=== PATIENT | female | born 1980 | race Hispanic/Latino ===

== ENCOUNTER 2021-06-26 14:43 | Emergency (ER) | payer OTHER ==
--- NOTE | 2021-06-26 17:54 | RAD REPORT ---
EXAM DESCRIPTION: [facility] Single View06/26/2021 5:11 pm CLINICAL HISTORY: Cough COMPARISON: none FINDINGS: Mild bilateral pulmonary opacities. . The heart is normal size IMPRESSION: Mild bilateral pulmonary opacities may indicate mild pneumonia
--- NOTE | 2021-06-26 18:35 | ER ---
Nurse's Notes [facility] Name: Keyana Christiansen Age: 40 yrs Sex: Female : 1980 Arrival Date: 06/26/2021 Time: 14:46 Bed DIS4 Private MD: Diagnosis: Fever, unspecified;Pneumonia due to SARS-associated coronavirus-Covid 19 Presentation: 06/26 16:09 Chief complaint: Patient states: started feeling achy, has nasal congestion iw and now a cough. Coronavirus screen: Client presents with at least one sign or symptom that may indicate coronavirus-19. Ebola Screen: Patient negative for fever greater than or equal to 101.5 degrees Fahrenheit, and additional compatible Ebola Virus Disease symptoms Patient denies exposure to infectious person. Patient denies travel to an Ebola-affected area in the 21 days before illness onset. No symptoms or risks identified at this time. Initial Sepsis Screen: Does the patient meet any 2 criteria? No. Patient's initial sepsis screen is negative. Does the patient have a suspected source of infection? No. Patient's initial sepsis screen is negative. Risk Assessment: Do you want to hurt yourself or someone else? Patient reports no desire to harm self or others. Onset of symptoms was June 24, 2021. 16:09 Method Of Arrival: Ambulatory iw 16:09 Acuity: ERICK 4 iw Triage Assessment: 19:00 General: Behavior is calm, cooperative. iw 19:30 General: Appears in no apparent distress. 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 - Social history:: Smoking status: Smoking status: Patient denies any tobacco usage or history of. - Family history:: not pertinent. Screenin:35 Abuse screen: Denies threats or abuse. Denies injuries from another. Nutritional iw screening: No deficits noted. Tuberculosis screening: No symptoms or risk factors identified. Fall Risk None identified. Vital Signs: 16:10 BP 166 / 95; Pulse 84; Resp 16; Temp 97.4; Pulse Ox 100% on R/A; iw ED Course: 14:46 Patient arrived in ED. ds1 16:10 Triage completed. iw 17:11 CXR XRAY In Process Unspecified. EDMS 17:33 Tj Jackson MD is Attending Physician. [facility] 17:47 Kailyn Bruce, RN is Primary Nurse. iw 18:10 Arm band placed on. iw 18:33 Chago Maldonado MD is Referral Physician. narciso 19:35 No provider procedures requiring assistance completed. Patient did not have IV access iw during this emergency room visit. Administered Medications: 19:20 Drug: Motrin (ibuprofen) 600 mg Route: PO; iw 19:30 Follow up: Response: No adverse reaction iw 19:22 Drug: Pepcid (famotidine) 40 mg Route: PO; iw 19:30 Follow up: Response: No adverse reaction iw 19:35 Drug: Rocephin (cefTRIAXone) 1 grams Route: IM; Site: left ventrogluteal; iw 19:40 Follow up: Response: No adverse reaction iw 19:35 Drug: Zithromax (azithromycin) 500 mg Route: PO; iw 19:40 Follow up: Response: No adverse reaction iw 19:35 Not Given (Patient Refused): Albuterol HFA Inhaler 4 puffs Inhalation once iw 19:36 Drug: Decadron (dexamethasone) 10 mg Route: IM; Site: left ventrogluteal; iw 19:40 Follow up: Response: No adverse reaction iw 19:36 Drug: Aspirin Chewable Tablet 162 mg Route: PO; iw 19:40 Follow up: Response: No adverse reaction iw Outcome: 18:34 Discharge ordered by . narciso 19:36 Patient left the ED. iw Signatures: Dispatcher [employer] EDME Tj Jackson MD MD cha Sanford, Demi ds1 Kailyn Bruce, RN RN iw
--- NOTE | 2021-06-26 18:35 | EDPHYS ---
Physician Documentation [facility] Name: Keyana Christiansen Age: 40 yrs Sex: Female : 1980 Arrival Date: 06/26/2021 Time: 14:46 Bed DIS4 Private MD: ED Physician Tj Jackson HPI: 06/26 18:25 This 40 yrs old Female presents to ER via Ambulatory with complaints of Cough, narciso Body Aches. 18:25 The patient or guardian reports airway noise, cough, that is constant. Onset: The narciso symptoms/episode began/occurred 3 day(s) ago. Severity of symptoms: At their worst the symptoms were mild, moderate, in the emergency department the symptoms are unchanged. Modifying factors: The symptoms are alleviated by nothing, the symptoms are aggravated by nothing. Associated signs and symptoms: Pertinent positives: chest pain, fever, nausea, rhinorrhea, sore throat. The patient has not experienced similar symptoms in the past. 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 - Social history:: Smoking status: Smoking status: Patient denies any tobacco usage or history of. - Family history:: not pertinent. ROS: 18:25 Constitutional: Negative for fever, chills, and weight loss, Eyes: Negative for injury, narciso pain, redness, and discharge, ENT: Negative for injury, pain, and discharge, Neck: Negative for injury, pain, and swelling, Cardiovascular: Negative for chest pain, palpitations, and edema, Abdomen/GI: Negative for abdominal pain, nausea, vomiting, diarrhea, and constipation, Back: Negative for injury and pain, : Negative for injury, bleeding, discharge, and swelling, MS/Extremity: Negative for injury and deformity, Skin: Negative for injury, rash, and discoloration, Neuro: Negative for headache, weakness, numbness, tingling, and seizure, Psych: Negative for depression, anxiety, suicide ideation, homicidal ideation, and hallucinations, Allergy/Immunology: Negative for hives, rash, and allergies, Endocrine: Negative for neck swelling, polydipsia, polyuria, polyphagia, and marked weight changes, Hematologic/Lymphatic: Negative for swollen nodes, abnormal bleeding, and unusual bruising. 18:25 Respiratory: Positive for cough, with no reported sputum, shortness of breath, at rest. Exam: 18:25 Constitutional: This is a well developed, well nourished patient who is awake, alert, narciso and in no acute distress. Head/Face: Normocephalic, atraumatic. Eyes: Pupils equal round and reactive to light, extra-ocular motions intact. Lids and lashes normal. Conjunctiva and sclera are non-icteric and not injected. Cornea within normal limits. Periorbital areas with no swelling, redness, or edema. ENT: Nares patent. No nasal discharge, no septal abnormalities noted. Tympanic membranes are normal and external auditory canals are clear. Oropharynx with no redness, swelling, or masses, exudates, or evidence of obstruction, uvula midline. Mucous membranes moist. Neck: Trachea midline, no thyromegaly or masses palpated, and no cervical lymphadenopathy. Supple, full range of motion without nuchal rigidity, or vertebral point tenderness. No Meningismus. Chest/axilla: Normal chest wall appearance and motion. Nontender with no deformity. No lesions are appreciated. Cardiovascular: Regular rate and rhythm with a normal S1 and S2. No gallops, murmurs, or rubs. Normal PMI, no JVD. No pulse deficits. Abdomen/GI: Soft, non-tender, with normal bowel sounds. No distension or tympany. No guarding or rebound. No evidence of tenderness throughout. Back: No spinal tenderness. No costovertebral tenderness. Full range of motion. Skin: Warm, dry with normal turgor. Normal color with no rashes, no lesions, and no evidence of cellulitis. MS/ Extremity: Pulses equal, no cyanosis. Neurovascular intact. Full, normal range of motion. Neuro: Awake and alert, GCS 15, oriented to person, place, time, and situation. Cranial nerves II-XII grossly intact. Motor strength 5/5 in all extremities. Sensory grossly intact. Cerebellar exam normal. Normal gait. Psych: Awake, alert, with orientation to person, place and time. Behavior, mood, and affect are within normal limits. 18:25 Respiratory: the patient does not display signs of respiratory distress, Respirations: normal, Breath sounds: bronchial sounds, that are mild, are scattered, decreased breath sounds, that are mild, are located in both bases, rhonchi, that are mild, are scattered, stridor, is not appreciated, Respiratory rate: 16 18:29 Musculoskeletal/extremity: Circulation is intact in all extremities. Sensation intact. narciso Compartment Syndrome exam of affected extremity: is normal. Joints: All joints appear normal with full range of motion. Weight bearing: able to fully bear weight, Tendon exam: specific tendon testing normal through active and passive range of motion DVT Exam: No signs of deep vein thrombosis. no pain, no swelling, no tenderness, negative Homans' sign noted on exam, no appreciated bluish discoloration, no erythema, no increased warmth. Vital Signs: 16:10 BP 166 / 95; Pulse 84; Resp 16; Temp 97.4; Pulse Ox 100% on R/A; iw MDM: 17:33 Patient medically screened. narciso 18:30 Differential Diagnosis: Bronchitis Influenza Upper Respiratory Infection Sinusitis narciso Pharyngitis Viral Syndrome Pneumonia. Data reviewed: vital signs, nurses notes, lab test result(s), radiologic studies, plain films. Data interpreted: monitoring engineer: not applicable for this patient encounter. rate is 84 beats/min, rhythm is regular, Pulse oximetry: on room air. Test interpretation: by ED physician or midlevel provider: plain radiologic studies. Counseling: I had a detailed discussion with the patient and/or guardian regarding: the historical points, exam findings, and any diagnostic results supporting the discharge/admit diagnosis, lab results, radiology results, the need for outpatient follow up, for definitive care, a family practitioner, a coil winder. 06/26 18:26 Order name: SARS-COV-2 RT PCR [facility] 06/26 16:11 Order name: CXR XRAY; Complete Time: 18:24 iw Administered Medications: 19:20 Drug: Motrin (ibuprofen) 600 mg Route: PO; iw 19:30 Follow up: Response: No adverse reaction iw 19:22 Drug: Pepcid (famotidine) 40 mg Route: PO; iw 19:30 Follow up: Response: No adverse reaction iw 19:35 Drug: Rocephin (cefTRIAXone) 1 grams Route: IM; Site: left ventrogluteal; iw 19:40 Follow up: Response: No adverse reaction iw 19:35 Drug: Zithromax (azithromycin) 500 mg Route: PO; iw 19:40 Follow up: Response: No adverse reaction iw 19:35 Not Given (Patient Refused): Albuterol HFA Inhaler 4 puffs Inhalation once iw 19:36 Drug: Decadron (dexamethasone) 10 mg Route: IM; Site: left ventrogluteal; iw 19:40 Follow up: Response: No adverse reaction iw 19:36 Drug: Aspirin Chewable Tablet 162 mg Route: PO; iw 19:40 Follow up: Response: No adverse reaction iw Disposition Summary: 06/26/21 18:34 Discharge Ordered Location: Home narciso Problem: new narciso Symptoms: have improved narciso Condition: Stable narciso Diagnosis - Fever, unspecified narciso - Pneumonia due to SARS-associated coronavirus - Covid 19 narciso Followup: narciso - With: Private Physician - When: 2 - 3 days - Reason: Recheck today's complaints, Continuance of care, Re-evaluation by your physician Followup: narciso - With: Chago Maldonado MD - When: 2 - 3 days - Reason: Recheck today's complaints, Re-evaluation by your physician Discharge Instructions: - Discharge Summary Sheet narciso - Fever, Adult narciso - Aspirin and Your Heart narciso - Fever, Adult, [id number] narciso - COVID-19 narciso - COVID-19: Quarantine vs. Isolation - [facility] Forms: - Medication Reconciliation Form [facility] - Thank You Letter [facility] - Antibiotic Education narciso - Prescription Opioid Use narciso Prescriptions: - albuterol sulfate 90 mcg/actuation Inhalation HFA aerosol inhaler - inhale 1 puff by INHALATION route every 4-6 hours; 2 puff; Refills: 0, Product narciso Selection Permitted - dexamethasone 2 mg Oral tablet - take 1 tablet by ORAL route 3 times per day; 15 tablet; Refills: 0, Product narciso Selection Permitted - ivermectin 3 mg Oral tablet - take 4 tablet by ORAL route once daily; 20 tablet; Refills: 0, Product [facility] Selection Permitted - Pepcid 20 mg Oral Tablet - take 1 tablet by ORAL route every 12 hours for 15 days; 30 tablet; Refills: 0, [facility] Product Selection Permitted - Zithromax 500 mg Oral Tablet - take 1 tablet by ORAL route once daily for 5 days; 5 tablet; Refills: 0, [facility] Product Selection Permitted Signatures: Dispatcher [employer] Tj Love MD MD cha Williams, Irene RN RN iw Corrections: (The following items were deleted from the chart) 17:11 16:15 CORONAVIRUS+[email or web address] ordered. EDMS EDMS
[2021-06-26] MEDS ORDERED: LIDOCAINE 1% MPF 5 ML VIAL ONE (19:37)
[2021-06-26] MEDS ORDERED: dexAMETHasone 10 MG/ML VIAL ONE (19:37)
[2021-06-26] MEDS ORDERED: ASPIRIN 81 MG CHEWABLE TABLET ONE (19:37)
[2021-06-26] MEDS ORDERED: IBUPROFEN 200 MG TAB PO ONE (19:38)
[2021-06-26] MEDS ORDERED: AZITHROMYCIN 250 MG TAB ONE (19:38)
[2021-06-26] MEDS ORDERED: FAMOTIDINE 20 MG TAB ONE (19:39)
[2021-06-26] MEDS ORDERED: CEFTRIAXONE 1000 MG/VIAL ONE (19:39)
[2021-06-26 19:41] VITALS: BP 166/95; TEMP 97.4; O2SAT 100
== END 2021-06-26 19:36 | disposition home or self-care (01) ==
LOC: ER 14:43
DX: U07.1 COVID-19 (principal); J12.82 Pneumonia due to coronavirus disease 2019; I10 Essential (primary) hypertension
CPT/HCPCS: 71045; U0003; J1100; 96372; 99283

== ENCOUNTER 2021-06-29 09:31 | Emergency (ER) | payer OTHER ==
[2021-06-29] MEDS ORDERED: PROMETHAZINE 25 MG TABLET ONE (10:25)
--- NOTE | 2021-06-29 11:40 | RAD REPORT ---
EXAM DESCRIPTION: [facility] Single View06/29/2021 10:32 am CLINICAL HISTORY: Cough COMPARISON: June 26, 2021 FINDINGS: No significant change in the bilateral pulmonary opacities. Heart is normal size IMPRESSION: No significant change in bilateral pulmonary opacities probably pneumonia
--- NOTE | 2021-06-29 12:57 | ER ---
[facility] Name: Keyana Christiansen Age: 40 yrs Sex: Female : 1980 Arrival Date: 06/29/2021 Time: 09:34 Bed 11 Private MD: Diagnosis: Cough;Other viral pneumonia-Covid positive Presentation: 06/29 09:46 Chief complaint: Patient states: Tested + for covid. Coronavirus screen: Client aa5 presents with at least one sign or symptom that may indicate coronavirus-19. Standard/surgical mask placed on the client. Provider contacted for isolation considerations. 09:46 Method Of Arrival: Ambulatory aa5 09:47 Ebola Screen: No symptoms or risks identified at this time. Risk Assessment: Do you aa5 want to hurt yourself or someone else? Patient reports desire/thoughts of hurting themselves or someone else. Provider notified. 09:47 Acuity: ERICK 4 aa5 10:06 Initial Sepsis Screen: Does the patient meet any 2 criteria? No. Patient's initial ca1 sepsis screen is negative. Does the patient have a suspected source of infection? No. Patient's initial sepsis screen is negative. Onset of symptoms was June 29, 2021. Triage Assessment: 09:50 Respiratory: No deficits noted. 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 - Social history:: Smoking status: Patient denies any tobacco usage or history of. Screenin:04 Abuse screen: Denies threats or abuse. Denies injuries from another. Nutritional ca1 screening: No deficits noted. Tuberculosis screening: No symptoms or risk factors identified. Fall Risk None identified. Assessment: 10:03 General: Appears in no apparent distress. comfortable, Behavior is calm, cooperative, ca1 appropriate for age. Pain: Denies pain. Neuro: Level of Consciousness is awake, alert, obeys commands, Oriented to person, place, time, situation. Cardiovascular: Rhythm is regular. Respiratory: Reports shortness of breath cough that is Airway is patent Respiratory effort is even, unlabored, Breath sounds are clear bilaterally. GI: Abdomen is round non-distended, Bowel sounds present X 4 quads. Abd is soft and non tender X 4 quads. Derm: Skin is intact, is healthy with good turgor, Skin is pink, warm \T\ dry. Musculoskeletal: Circulation, motion, and sensation intact. Capillary refill < 3 seconds. 13:20 Reassessment: Patient appears in no apparent distress at this time. Patient and/or ca1 family updated on plan of care and expected duration. Pain level reassessed. Patient is alert, oriented x 3, equal unlabored respirations, skin warm/dry/pink. Vital Signs: 09:47 BP 160 / 100; Pulse 85; Resp 20; Temp 98.8; Pulse Ox 97% on R/A; aa5 09:50 BP 160 / 100; Pulse 83; Resp 18; Temp 98.8; Pulse Ox 98% on R/A; aa5 13:20 BP 149 / 99; Pulse 81; Resp 16 S; Pulse Ox 99% on R/A; ca1 ED Course: 09:34 Patient arrived in ED. as 09:50 Triage completed. aa5 09:53 Jose Elias Alexander MD is Attending Physician. kdr 09:59 Skylar Mccormick RN is Primary Nurse. ca1 10:04 Patient has correct armband on for positive identification. ca1 10:06 Arm band placed on right wrist. ca1 10:06 No provider procedures requiring assistance completed. ca1 10:30 CXR XRAY In Process Unspecified. EDMS 13:21 Patient did not have IV access during this emergency room visit. ca1 Administered Medications: 10:03 Drug: Phenergan (promethazine) 25 mg Route: PO; ca1 12:00 Follow up: Response: No adverse reaction; Nausea is decreased ca1 Outcome: 12:56 Discharge ordered by . kdr 13:21 Discharged to home ambulatory. ca1 13:21 Condition: stable 13:21 Discharge instructions given to patient, Instructed on discharge instructions, follow up and referral plans. medication usage, Demonstrated understanding of instructions, follow-up care, medications, Prescriptions given X 2. 13:21 Patient left the ED. ca1 Signatures: Dispatcher [employer] EDFL Jose Elias Alexander MD MD kdr Martinez, Amelia as Calderon, Audri, RN RN aa5 Skylar Mccormick RN RN ca1
--- NOTE | 2021-06-29 12:57 | EDPHYS ---
Physician Documentation [facility] Name: Keyana Christiansen Age: 40 yrs Sex: Female : 1980 Arrival Date: 06/29/2021 Time: 09:34 Bed 11 Private MD: ED Physician Jose Elias Alexander HPI: 06/29 20:19 This 40 yrs old Female presents to ER via Ambulatory with complaints of kdr Shortness Of Breath, Chest Pain, Cough, covid pneumonia. 20:19 The patient has shortness of breath at rest, with light activity. Onset: The kdr symptoms/episode began/occurred gradually, 1 week(s) ago. Duration: The symptoms are continuous, Persistent. The patient's shortness of breath is aggravated by coughing, exertion, light activity, is alleviated by nothing. Associated signs and symptoms: Pertinent positives:. Severity of symptoms: At their worst the symptoms were mild in the emergency department the symptoms are unchanged. The patient has not experienced similar symptoms in the past. The patient has been recently seen by a physician:. 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 - Social history:: Smoking status: Patient denies any tobacco usage or history of. ROS: 20:19 Constitutional: Negative for fever, chills, and weight loss, Eyes: Negative for injury, kdr pain, redness, and discharge, Neck: Negative for injury, pain, and swelling, Cardiovascular: Negative for chest pain, palpitations, and edema, Abdomen/GI: Negative for abdominal pain, nausea, vomiting, diarrhea, and constipation, Back: Negative for injury and pain, MS/Extremity: Negative for injury and deformity, Skin: Negative for injury, rash, and discoloration, Neuro: Negative for headache, weakness, numbness, tingling, and seizure activity. Psych: Negative for depression, anxiety, suicide ideation, homicidal ideation, and hallucinations, Allergy/Immunology: Negative for hives, rash, and allergies, Endocrine: Negative for neck swelling, polydipsia, polyuria, polyphagia, and marked weight changes. 20:19 Respiratory: Positive for cough, with no reported sputum, shortness of breath, Negative for hemoptysis, orthopnea, pleurisy. Exam: 20:19 Constitutional: This is a well developed, well nourished patient who is awake, alert, kdr and in no acute distress. Head/Face: Normocephalic, atraumatic. Eyes: Pupils equal round and reactive to light, extra-ocular motions intact. Lids and lashes normal. Conjunctiva and sclera are non-icteric and not injected. Cornea within normal limits. Periorbital areas with no swelling, redness, or edema. Neck: Trachea midline, no thyromegaly or masses palpated, and no cervical lymphadenopathy. Supple, full range of motion without nuchal rigidity, or vertebral point tenderness. No Meningismus. Chest/axilla: Normal chest wall appearance and motion. Nontender with no deformity. No lesions are appreciated. Cardiovascular: Regular rate and rhythm with a normal S1 and S2. No gallops, murmurs, or rubs. Normal PMI, no JVD. No pulse deficits. Abdomen/GI: Soft, non-tender, with normal bowel sounds. No distension or tympany. No guarding or rebound. No evidence of tenderness throughout. Back: No spinal tenderness. No costovertebral tenderness. Full range of motion. Skin: Warm, dry with normal turgor. Normal color with no rashes, no lesions, and no evidence of cellulitis. MS/ Extremity: Pulses equal, no cyanosis. Neurovascular intact. Full, normal range of motion. Neuro: Awake and alert, GCS 15, oriented to person, place, time, and situation. Cranial nerves II-XII grossly intact. Motor strength 5/5 in all extremities. Sensory grossly intact. Cerebellar exam normal. Normal gait. Psych: Awake, alert, with orientation to person, place and time. Behavior, mood, and affect are within normal limits. 20:19 Respiratory: mild respiratory distress is noted, moderate respiratory distress is noted, Respirations: Breath sounds: rales, that are mild, are scattered. Vital Signs: 09:47 BP 160 / 100; Pulse 85; Resp 20; Temp 98.8; Pulse Ox 97% on R/A; aa5 09:50 BP 160 / 100; Pulse 83; Resp 18; Temp 98.8; Pulse Ox 98% on R/A; aa5 13:20 BP 149 / 99; Pulse 81; Resp 16 S; Pulse Ox 99% on R/A; ca1 MDM: 12:56 Patient medically screened. kdr 20:19 Data reviewed: vital signs, nurses notes, lab test result(s), radiologic studies. kdr Counseling: I had a detailed discussion with the patient and/or guardian regarding: the historical points, exam findings, and any diagnostic results supporting the discharge/admit diagnosis, lab results, radiology results, the need for outpatient follow up. 06/29 10:02 Order name: CXR XRAY; Complete Time: 12:51 kdr Administered Medications: 10:03 Drug: Phenergan (promethazine) 25 mg Route: PO; ca1 12:00 Follow up: Response: No adverse reaction; Nausea is decreased ca1 Disposition Summary: 06/29/21 12:56 Discharge Ordered Location: Home kdr Problem: new kdr Symptoms: have improved kdr Condition: Stable kdr Diagnosis - Cough kdr - Other viral pneumonia - Covid positive kdr Followup: kdr - With: Private Physician - When: 2 - 3 days - Reason: If symptoms return, Further diagnostic work-up, Recheck today's complaints, Continuance of care, Re-evaluation by your physician Discharge Instructions: - Discharge Summary Sheet kdr - COVID-19 kdr - Things to Know about the COVID-19 Pandemic - [facility] kdr - 10 Things You Can Do to Manage Your COVID-19 Symptoms at Home - [facility] kdr Forms: - Medication Reconciliation Form kdr - Thank You Letter kdr - Prescription Opioid Use kdr Prescriptions: - Promethazine VC-Codeine 6.25-5-10 mg/5 mL Oral syrup - take 5 milliliter by ORAL route every 4-6 hours as needed, not to exceed 30 mL kdr in 24 hours; 200 milliliter; Refills: 0, Product Selection Permitted - Tessalon Perles 100 mg Oral Capsule - take 1 capsule by ORAL route every 8 hours As needed; 15 capsule; Refills: 0, kdr Product Selection Permitted Signatures: Dispatcher [employer] Jose Elias Witt MD MD kdr Merly Saab, RN RN aa5 Skylar Mccormick RN RN ca1
[2021-06-29 13:39] VITALS: TEMP 98.8
[2021-06-29 13:43] VITALS: BP 149/99; O2SAT 99
== END 2021-06-29 13:21 | disposition home or self-care (01) ==
LOC: ER 09:31
DX: U07.1 COVID-19 (principal); J12.89 Other viral pneumonia; I10 Essential (primary) hypertension
CPT/HCPCS: 71045; 99283; Q0169

== ENCOUNTER 2024-07-22 09:15 | Day surgery (SDC) | payer OTHER ==
[2024-07-19 11:02] LABS: Specific Gravity 1.028 (1.005-1.030); Urine Bacteria None Seen /HPF (<20); Urine Bilirubin NEGATIVE (Negative); Urine Blood 1+ (Negative); Urine Clarity Extremely Turbid (Clear); Urine Color Yellow (Yellow); Urine Culture Reflex Order NOT NEEDED; Urine Glucose NEGATIVE (Negative); Urine Ketones NEGATIVE (Negative); Urine Microscopic Reflex YN ORDER UMIC; Urine Mucus Slight /HPF (None Seen); Urine Nitrite NEGATIVE (Negative); Urine Protein TRACE (Negative); Urine RBC <5 /HPF (None Seen); Urine Urobilinogen Normal (Normal); Urine WBC <5 /HPF (<5); Urine pH 6.5 (5.0-7.0)
[2024-07-19 11:22] LABS: Absolute Eosinophils 0.1 K/uL (0-0.5); Absolute Lymphocytes (CBC) 1.3 K/uL (0.7-4.9); Absolute Monocytes 0.4 K/uL (0.1-1.3); Absolute Neutrophil 3.2 K/uL (1.8-8.0); Basophils % 0.5 % (0-1.3); Eosinophils % 1.3 % (0-4.4); Hematocrit 36.2 % (36.0-45.0); Hemoglobin 12.8 g/dL (12.0-15.0); Lymphocytes % 27.3 % (15.3-44.8); MCH 31.7 pg (27.0-35.0); MCHC 35.5 g/dL (32.0-36.0); MCV 89.3 fL (80-100); MPV 8.5 fL (7.6-11.3); Monocytes % 7.2 % (3.3-12.3); Neutrophils % 63.7 % (41.7-73.7); Platelets 256 thou/uL (152-406); RBC Red Blood Cell Count 4.05 M/uL (3.86-4.86); Red Cell Distribution Width 12.7 % (12.1-15.2)
--- NOTE | 2024-07-19 12:36 | EKG ---
Test Date: 2024-07-19 Test Time: 10:47:40 Carton Stapler: TAMARA MEASUREMENT RESULTS: Intervals: Rate: 64 NJ: 164 QRSD: 82 QT: 386 QTc: 398 Melvin: P: 62 NJ: 164 QRS: 60 T: 59 INTERPRETIVE STATEMENTS: Normal sinus rhythm Normal ECG No previous ECG available for comparison Electronically Signed On 07-19-24 12:36:16 CDT by Redd Bustos
[2024-07-22] MEDS ORDERED: CEFAZOLIN SODIUM 2 GM/VIAL ONE (09:19)
[2024-07-22] MEDS: Ringers Lactate 1,000 ML IV ONE ×2 (09:20→15:05)
[2024-07-22] MEDS: SCOPOLAMINE HYDROBROMIDE PATCH TD ONE (09:35)
[2024-07-22] MEDS ORDERED: MIDAZOLAM HCL 2 MG/2 ML INJ ONE (11:15)
[2024-07-22] MEDS ORDERED: ONDANSETRON 4 MG/2 ML VIAL ONE (11:15)
[2024-07-22] MEDS ORDERED: FENTANYL CITR 100 MCG/2 ML ONE (11:15)
[2024-07-22] MEDS ORDERED: propofoL 200 MG/20 ML VIAL IV ONE (11:15)
[2024-07-22] MEDS ORDERED: LIDOCAINE 2% MPF 5 ML VIAL ONE (11:15)
[2024-07-22] MEDS ORDERED: ROCURONIUM 50 MG/5 ML VIAL IV ONE (11:15)
[2024-07-22] MEDS: CEFAZOLIN SODIUM 1 GM/VIAL ONE (13:16)
[2024-07-22] MEDS: BUPIVACAINE 0.25% PF 30 ML VIAL ONE (13:17)
[2024-07-22] MEDS ORDERED: dexAMETHasone 10 MG/ML VIAL ONE (13:18)
[2024-07-22] MEDS ORDERED: EPHEDRINE SULF 50 MG/ML VIAL ONE (13:38)
[2024-07-22] MEDS ORDERED: KETOROLAC 30 MG/ML INJ ONE (14:42)
[2024-07-22] MEDS: HYDROMORPHONE HCL 1 MG/ML INJ ONE (15:30)
[2024-07-22 15:48] VITALS: TEMP 97
[2024-07-22] MEDS: HYDROCODONE/APAP 5/325 MG TAB ONE (16:02)
[2024-07-22 16:15] VITALS: BP 120/64; O2SAT 100
--- NOTE | 2024-07-23 23:36 | OP ---
Date of Procedure: 07/22/2024 Surgeon: Giovanna Strong MD Maintenance Supervisor Mechanical: Laurence Mccurdy. Preoperative Diagnoses: Pelvic pain, possible adhesions, endometriosis. Postoperative Diagnoses: Pelvic pain, possible adhesions, bilateral tubo-ovarian adhesions, and dist al hydrosalpinges, adhesions of the uterus to the bladder, round ligament, and right anterior broad l igament to the anterior abdominal wall. No evidence of endometriosis. Procedures Performed: 1.Diagnostic laparoscopy. 2.Bilateral salpingectomy. 3.Lysis of omental adhesions. 4.Lysis was tubo-ovarian adhesions to the sidewall. Anesthesia: General endotracheal. Estimated Blood Loss: 25. Urine Output: 100. Fluids: 500. Specimens: Bilateral tubes. Complications: No complications. Drains: No drains. Condition: Stable. Findings: Uterine adhesions to the anterior abdominal wall. Omental adhesions to the scar site, suspicious for an anterior abdominal wall hernia. Then, right anterior abdominal wall adhesion s to the right broad ligament and right round ligament. Then, bilateral tubo-ovarian adhesions to narciso th bilateral lateral robbins, significantly adherent with cystic structures in the between the tubes an d ovaries. There are still hydrosalpinges and omental adhesions was discussed. Indications: The patient is a 43-year-old with significant pelvic pain, has completed childbearing. She was managed conservatively in the past without any resolution of her pain. She had the IUD plac ed, which did not take care of her pain. So, discussed about the possibility of diagnostic laparosco py, lysis of adhesions, endometriosis excision, and bilateral salpingectomy. She was consented as sh e was done and completed the childbearing. This procedure would not impede any of her future plans. Procedure In Detail: After informed consent was verified, she was taken back to the OR. 2 g of Ance f were given. General endotracheal anesthesia was given, placed in a dorsal lithotomy position in [facility]. Abdomen was prepped with ChloraPrep; vulva, vagina, and perineum with Betadine, draped in a sterile fashion. SCDs were started. Time-out was done. Arms tucked by the side, positioning checked. Speculum was placed to expose the cervix. Anterior lip was grasped with a single-tooth tenaculum. C ervix was dilated to 16-Tunisian and a diagnostic manipulator introduced into the uterus. Lam was us ed to drain the bladder and attached to a gravity bag and this area was draped. 1 cm infraumbilical incision made with a scalpel using the open laparoscopy technique. Fascia was in cised, tagged with 0 Vicryl sutures. Peritoneum was entered sharply. Roosevelt was introduced and site of entry was checked and was unremarkable after adequate insufflation. The left lateral port was pl aced in the lower quadrant. It was free from adhesions. Then, once this was placed, the left upper quadrant port was placed as well to triangulate the . After all these sites were injected at the fascia and skin with Marcaine, then trocars were placed. These were the operative ports. Lysis of omental adhesions and reduction of the abdominal wall hernia contents. Careful dissection w as performed, was used push spread technique to dissect the omentum from the anterior abdominal wall. Bipolar current as well as sharply were the techniques used to take the omental adhesion s down the anterior abdominal wall and the hernia sac. Lysis of tubo-ovarian adhesions after the entire pelvic cavity was surveyed carefully. No evidence o f any endometriosis was noted. However, there were significant tubo-ovarian adhesions as well as dil ation of the tube, so tubal ovarian lysis was first performed. Tubes were dissected from the lateral wall by opening the peritoneum and dissecting them away from the lateral aspect of mesosalpinx all t he way down to the left tube. Then, from the ovary, the tube was dissected. There were several cyst ic structures in the mesosalpinx, which were dilated and kept along with specimen side. Then, dissec jhonathan all mesosalpinx to the cornual end. This was cauterized and cut. The specimen was placed in the anterior cul-de-sac. There was a cyst on the left ovary that was about 3.5 cm. This was a simple c yst, appeared to be physiological, it was drained. Tubal adhesions from the right lateral wall were taken down as well in a similar fashion, starting at the level of the round ligament and dissecting towards the IP. Careful preservation of the IP was u ndertaken and mesosalpinx was dissected from the fimbriated end entirely all the way to the proximal portion of the tube. There was a tubal interruption on this side or adhesions. This was carefully d issected down in 2 pieces and the excess of the cornual end handed out for permanent pathology. The tubes were then released from the lateral sidewall medially and laterally until they were free. Lysis of adhesions of the anterior abdominal wall and the uterus. These were taken down in sterile f ashion staying in the plane between the peritoneum and the fat before the bladder and the uterus. Th e adhesions of the round ligament and broad ligament were taken down to free up the uterus. Thorough irrigation and suction were performed. The ovary from the left side was from the lateral robbins with sharp dissection as well as . After thorough irrigation and suction, th e specimens were removed through the 10 port and all the trocars were removed under direct vision. T here was good hemostasis in all the . After all the gas was desufflated, the umbilical tro car was removed. Fascia at the umbilicus was closed with 0 Vicryl sutures tied to each other and int errupted 4-0 Monocryl sutures at all skin incision. Uterine manipulator and Lam were removed. Ins trument, needle, and sponge counts were correct at the end of the case. The patient tolerated the pr ocedure well. She was recovered from anesthesia and taken to PACU in stable condition. Her family was debriefed about her procedure and s he will follow up in 1 week. ZAK/ANNEL Voice ID: [id number] Report ID: [id number]
== END 2024-07-22 16:21 | disposition home or self-care (01) ==
LOC: OR 09:15
PROVIDERS: ATTEND Obstetrics & Gynecology
PROC: 0DNU4ZZ Release Omentum, Percutaneous Endoscopic Approach (ICD-10-PCS; 2024-07-22)
PROC: 0UN24ZZ Release Bilateral Ovaries, Percutaneous Endoscopic Approach (ICD-10-PCS; 2024-07-22)
PROC: 0UT74ZZ Resection of Bilateral Fallopian Tubes, Percutaneous Endoscopic Approach (ICD-10-PCS; principal; 2024-07-22 11:30)
DX: R10.2 Pelvic and perineal pain (principal); K66.0 Peritoneal adhesions (postprocedural) (postinfection); N73.6 Female pelvic peritoneal adhesions (postinfective)
CPT/HCPCS: 93005; 85025; 81001; 36415; 86900; 86850; 81025; 86901; 88305; 58661; 49329; 58660; J2704; J2001; J2250; J3010; J1100; J1170; J2405; J7120 ×2; J0690; 88302